=== PATIENT | female | born 1990 | race Caucasian/White ===

== ENCOUNTER 2017-05-25 13:08 | Emergency (ER) | payer SELFPAY ==
[~2017-05-25] VITALS: Ht 162.6 cm; Wt 55.0 kg
[2017-05-25 13:09] VITALS: BP_SYST 13; BP_SYST 133; BP_DIAS 78; PULSE 86; RESP 16; TEMP 99.2; O2SAT 98
== END 2017-05-25 16:49 | disposition left against medical advice (07) ==
LOC: NED 13:08
DX: S09.90XA Unspecified injury of head, initial encounter (principal); W19.XXXA Unspecified fall, initial encounter
CPT/HCPCS: 99281